=== PATIENT | female | born 1970 | race Caucasian/White ===

== ENCOUNTER 2016-11-09 06:25 | Day surgery (SDC) | payer OTHER ==
[~2016-11-09 06:25] MED LIST: LIDOCAINE W/ SODIUM BICARB 0.5 ML SYR ONE; Lactated Ringers 2,000 ML PRIMARY IV ONE; Sodium Chloride 0.9% 100 ML IV ONE
[2016-11-09] MEDS ORDERED: LIDOCAINE MPF 2% - 5 ML (20 MG/1 ML) ONE (07:05)
[2016-11-09] MEDS ORDERED: fentaNYL Inj 250 MCG/5 ML VIAL ONE (07:05)
[2016-11-09 07:06] LABS: HEMATOCRIT 40.4 % (37.0-47.0); HEMOGLOBIN 13.1 g/dL (12.0-16.0)
[2016-11-09] MEDS ORDERED: MIDAZOLAM 5 MG/1 ML ONE (07:06)
[2016-11-09] MEDS ORDERED: SUFENTANIL 50 MCG/1 ML ONE (07:06)
[2016-11-09] MEDS ORDERED: KETAMINE 100 MG/1 ML - 5 ML ONE (07:06)
[2016-11-09] MEDS ORDERED: Sodium Chloride 0.9% vial 10 ML ONE (07:10)
[2016-11-09] MEDS ORDERED: BUPIVACAINE 0.5% W/EPI MPF -30 ML VIAL IV ONE (07:11)
[2016-11-09] MEDS ORDERED: ONDANSETRON 4 MG/2 ML VIAL ONE (07:33)
[2016-11-09] MEDS ORDERED: SCOPOLAMINE HYDROBROMIDE 1.5 MG - 1 EACH PATCH TRANSDERM ONE (07:33)
[2016-11-09] MEDS ORDERED: Acetaminophen 1000mg Inj 100 ML IV ONE (07:34)
[2016-11-09] MEDS ORDERED: DEXAMETHASONE SOD PHOSPHATE 4 MG/1 ML VIAL ONE (07:34)
[2016-11-09] MEDS ORDERED: BUPIVACAINE 0.25% W/ EPI - 10 ML VIAL ONE (07:37)
[2016-11-09] MEDS ORDERED: LIDOCAINE HCL 2 % 10 ML JELLY URO-JECT TOPICAL ONE (07:46)
[2016-11-09] MEDS ORDERED: Lactated Ringers 1,000 ML PRIMARY IV ONE ×3 (08:14→09:20)
[2016-11-09] MEDS ORDERED: LIDOCAINE W/ SODIUM BICARB 0.5 ML SYR ONE (08:23)
[2016-11-09 08:31] LABS: BILIRUBIN,URINE NEGATIVE (NEG); CLARITY,URINE CLEAR (CLEAR); COLOR,URINE YELLOW; GLUCOSE, URINE (UA) NEGATIVE (NEG); NITRATE,URINE NEGATIVE (NEG); OCCULT BLOOD,URINE NEGATIVE (NEG); PROTEIN,URINE NEGATIVE (NEG); UROBILINOGEN,URINE 0.2 EU/dL (0.2)
[2016-11-09 08:32] LABS: URINE SAMPLE TYPE CATH SPECIMEN
[2016-11-09] MEDS ORDERED: Opium-Belladonna 30-16.2mg 1 EACH SUPP.RECT RECTAL ONE (08:32)
[2016-11-09] MEDS ORDERED: fentaNYL Inj 100 MCG/2 ML VIAL IVP PRN (08:41)
[2016-11-09] MEDS ORDERED: NORMAL SALINE 10 ML SYRINGE FLUSH IVP PRN ×2 (08:41→09:53)
[2016-11-09] MEDS ORDERED: Prochlorperazine Edisylate Inj 10mg/2ml vial IVP PRN (08:41)
[2016-11-09] MEDS ORDERED: HYDROmorphone 2 MG/1 ML IVP PRN (08:41)
[2016-11-09] MEDS ORDERED: Lactated Ringers 1,000 ML PRIMARY IV SCH (08:45)
[2016-11-09] MEDS ORDERED: KETOROLAC 30 MG/1 ML VIAL ONE (09:22)
[2016-11-09] MEDS ORDERED: IBUPROFEN 800 MG TABLET PO PRN (09:53)
[2016-11-09] MEDS ORDERED: KETOROLAC 30 MG/1 ML VIAL IVP PRN (09:53)
[2016-11-09] MEDS ORDERED: Ondansetron ODT Tab 8 MG TAB PO PRN (09:53)
[2016-11-09] MEDS ORDERED: HYDROcodone-APAP 7.5 MG-325 MG TABLET PO PRN (09:53)
--- NOTE | 2016-11-09 10:08 | OB.OP.NOTE ---
Operative Report Surgeon: [employer] Manager: Carlito Milner MD Anesthesia Type: General Anesthesia Provider: Tico Moya CRNA Surgery Date: 11/09/16 Preoperative Diagnosis: MMR/Fibroid Uterus Postoperative Diagnosis: Same with probable adenomyosis Procedure: da Dillon Hysterectomy/BSO/Cystoscopy Estimated Blood Loss (mL): 150 Fluids: 2100 ml Complications: None Findings at Surgery: Diffusely enlarged uterus, Approximately 16 week size. Normal tubes and ovaries. The liver edge, stomach, visualized portion of the bowel and pelvic peritoneum appeared normal with no visible evidence of bowel, bladder, or ureter injury. At cystoscopy both ureters were seen to eject urine indicating ureteral patency and function. The bladder dome was intact. Indications for the Procedure: Menometrorrhagia and an enlarged probably fibroid uterus. Description of Procedure: The patient was taken to the operating room and placed supine where general endotracheal anesthesia was administered. She was then placed in lithotomy position in Ten stirrups. Examination under anesthesia was significant only for the enlarged uterus. The patient was prepped and draped in the normal sterile fashion and a Linder catheter was placed. A weighted speculum was placed in the vagina and the anterior lip of the cervix was grasped with a single-tooth tenaculum. The uterus was sounded to a depth of 8 cm. A Yamileth 2 uterine manipulator with an 8 cm tip and a large cervical collar was introduced into the endometrial cavity and the tip balloon was inflated with air. The tenaculum was then removed from the cervix and the cervical collar was advanced and locked into place. Palpation revealed good placement around the entire cervix. The weighted speculum was removed. 1/4% Marcaine with epinephrine was then injected in the midline at the superior edge of the umbilicus and just lateral to that on both sides. A scalpel was then used to create a midline incision at the superior edge of the umbilicus. The abdominal wall was then grasped with penetrating towel clamps on both sides of the incision and elevated while a 12 mm non-bladed laparoscopic trocar was introduced through the umbilical incision into the peritoneal cavity with a direct insertion technique under direct visualization with an 8 mm scope placed within the port. The abdomen was then insufflated with carbon dioxide. The 2 lateral robotic ports were then placed just lateral to the rectus muscle and inferior to rectus muscle after injection with Marcaine. The patient was placed in Trendelenburg position. The patient cart was then brought in and docked with a side docking technique in the usual manner. A 12 no meter scope was introduced into the camera port. A monopolar scissor was introduced into port 1 and advanced into the pelvis under direct visualization. A gyrus PK bipolar grasper was introduced into port 2 and advanced into the pelvis under direct visualization. Photographs were then taken of the uterus and the adnexa. The left adnexa was grasped and elevated and pulled medially exposing the infundibulum pelvic ligament. This was cauterized and divided using the gyrus device and the monopolar scissor. This was followed by cautery and division of the left nasal ovarian and round ligament followed by the broad ligament to just above the uterine vessels. The anterior and posterior leafs of the broad ligament was skeletonized exposing the uterine vessels which were triply cauterized and divided on the cervix with good hemostasis noted. The vesicouterine peritoneum was then divided with monopolar scissor and the bladder was dissected off of the lower uterine segment and upper cervix. The peritoneal defect was then continued to the right round ligament with monopolar scissor. The round ligament was cauterized and divided. The mesovarium was then carefully cauterized and divided to expose the pelvic ligament on the right side which was difficult to see secondary to the size of the uterus and its deviation to the right. The IP ligament was cauterized and divided with good hemostasis noted. The broad ligament was then cauterized and divided to the level of the uterine vessels. These were then exposed triply cauterized and divided on the cervix with good hemostasis noted. The bladder was then further dissected down the cervix and upper vagina to clear the cervical collar by several centimeters. The cardinal ligaments were then taken down on both sides using bipolar cautery monopolar scissor to clear the cervical collar. The colpotomy was then begun on the anterior aspect of the cervix and carried circumferentially until complete. Uterine specimen was then removed through the vagina intact with the adnexa attached. The pelvis was copiously irrigated and inspected and good hemostasis was noted. A 9 inch O V lock suture was then introduced through the vaginal cuff and this was used to close the vaginal cuff from left to right. The suture fragment and needle were then placed in the pelvis for future retrieval. The pelvis was again copiously irrigated and inspected. Good hemostasis was noted and no visible evidence of bowel, bladder , or ureter injury was seen. All instruments were then removed from the abdomen and the patient cart was undocked and taken away from the bedside. An 8 mm scope was introduced to the right robotic port and a locking grasper was introduced through the umbilical port. This was used to retrieve the suture fragment a needle from the pelvis. Reinspection again revealed good hemostasis and no visible evidence of bowel, bladder, or ureter injury. All instruments were then removed from the abdomen and the abdomen was desufflated with direct pressure through the removed caps on the trocar sleeves. The sleeves themselves were then removed and the fascia was closed in the umbilical incision site with a [id number] 0 Vicryl suture on a UR 6 needle. The skin wounds were then closed appropriately and dressed. Cystoscopy was performed with a 70 cystoscope and normal saline distending medium. Inspection of the bladder revealed both ureter orifices to eject urine indicating ureteral patency and function. The bladder dome was intact. The cystoscope was then removed and the bladder was drained through the sheath. The vaginal cuff was interrogated with a sponge stick and found to be hemostatic with good closure. Sponge, lap, and needle counts were correct 2. There were no Occasions of surgery. The patient left to recovery in good condition. Plan: Routine postoperative care and discharge to home.
[2016-11-09 10:33] VITALS: RESP 12
[2016-11-09] MEDS ORDERED: Prochlorperazine Edisylate Inj 10mg/2ml vial ONE (10:49)
[2016-11-09] MEDS: FLUMAZENIL 0.1 MG/1 ML - 5 ML IVP ONE ×2 (12:14→12:25)
[2016-11-09] MEDS ORDERED: FLUMAZENIL 0.1 MG/1 ML - 5 ML IVP PRN (12:26)
[2016-11-09 15:30] VITALS: TEMP 98.5
[2016-11-09] MEDS ORDERED: DOCUSATE 100 MG CAPSULE PO SCH (21:00)
== END 2016-11-09 14:45 | disposition home or self-care (01) ==
LOC: SDSC 06:25
PROVIDERS: ATTEND Obstetrics & Gynecology
DX: N92.1 Excessive and frequent menstruation with irregular cycle (principal); D25.9 Leiomyoma of uterus, unspecified
CPT/HCPCS: 52000; 58552; 81003; 84703; 85014; 85018; A4216; J0131; J0694; J1885; J2704; J3010; S0020; J0780; J1100; J2001; J2250; J2405; J3490; J7050; J7120